=== PATIENT | male | born 1995 | race Asian ===

== ENCOUNTER 2016-05-31 16:04 | Emergency (ER) | payer OTHER ==
[~2016-05-31] VITALS: Ht 170 cm; Wt 60.0 kg
[~2016-05-31 16:04] MED LIST: CIPRO 500MG TA500 MG PO; DOXYCYCLINE 10100 MG PO; IBU-8800 MG PO; NO HOME MEDICATIONS; PREDNISONE20 MG PO; TAMIFLU 75MG75 MG PO; ZANTAC 7575 MG PO; ZITHROMAX 250M250 MG PO; ZOFRAN ODT8 MG PO
[2016-05-31 16:08] VITALS: BP 138/64; PULSE 79; TEMP 99
[2016-05-31] MEDS ORDERED: FLEXERIL 1010 MG/TAB PO (16:27)
== END 2016-05-31 16:49 | disposition home or self-care (01) ==
LOC: COL.ER 16:04
DX: M25.522 Pain in left elbow (principal)